=== PATIENT | male | born 1940 | race African-American/Black ===

== ENCOUNTER 2022-03-11 08:17 | Emergency (ER) | payer MEDICARE ==
[~2022-03-11] VITALS: Ht 172.7 cm; Wt 107.0 kg
[2022-03-11] MEDS ORDERED: VENTOLIN HFA108 MCG IN (12:23)
[2022-03-11] MEDS ORDERED: PREDNISONE20 MG PO (12:23)
[2022-03-11 12:32] VITALS: BP 138/75
== END 2022-03-11 12:33 | disposition home or self-care (01) ==
LOC: ED 08:17
DX: J44.9 Chronic obstructive pulmonary disease, unspecified (principal)